=== PATIENT | female | born 2000 | race African-American/Black ===

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

== ENCOUNTER 2020-07-16 10:48 | Emergency (ER) | payer OTHER ==
[~2020-07-16] VITALS: Ht 165.1 cm; Wt 63.5 kg
[~2020-07-16 10:48] MED LIST: FLAGYL500 M1 PO
[2020-07-16 11:17] LABS: URINE BILIRUBIN NEGATIVE (Negative); URINE BLOOD NEGATIVE (Negative); URINE CLARITY CLEAR; URINE COLOR YELLOW; URINE GLUCOSE-RANDOM* NEGATIVE (Negative); URINE KETONES 1+ (Negative); URINE NITRITE-REFLEX NEGATIVE (Negative); URINE PROTEIN (DIPSTICK) 1+ (Negative)
[2020-07-16 11:20] LABS: URINE LEUKOCYTES-REFLEX 2+ (Negative)
[2020-07-16 11:53] LABS: CASTS None Seen /LPF (None Seen); SQUAMOUS >10 Many /LPF (0-3); URINE WBC-REFLEX 6-15 Few /HPF (0-5)
[2020-07-16 11:54] LABS: BACTERIA-REFLEX >30 Many /HPF (None Seen); CRYSTALS None Seen /LPF (None Seen); URINE RBC None Seen /HPF (0-2)
[2020-07-16 11:58] VITALS: BP 138/93
[2020-07-16] MEDS ORDERED: KEFLEX500 M1 PO (12:00)
== END 2020-07-16 12:05 | disposition home or self-care (01) ==
LOC: ER 10:48
PROVIDERS: Nurse Practitioner
DX: Z20.2 Contact with and (suspected) exposure to infections with a predominantly sexual mode of transmission (principal); N39.0 Urinary tract infection, site not specified

== ENCOUNTER 2020-09-18 18:52 | Emergency (ER) | payer OTHER ==
[~2020-09-18] VITALS: Ht 165.1 cm; Wt 47.6 kg
[~2020-09-18 18:52] MED LIST changes: +KEFLEX500 M1 PO
[2020-09-18 19:35] LABS: URINE BILIRUBIN 1+ (Negative); URINE BLOOD 1+ (Negative); URINE CLARITY SL CLOUDY; URINE COLOR YELLOW; URINE GLUCOSE-RANDOM* NEGATIVE (Negative); URINE KETONES 3+ (Negative); URINE NITRITE-REFLEX NEGATIVE (Negative); URINE PROTEIN (DIPSTICK) NEGATIVE (Negative); URINE SPECIFIC GRAVITY >= 1.030 (1.005-1.035)
[2020-09-18 19:37] LABS: URINE LEUKOCYTES-REFLEX 1+ (Negative)
[2020-09-18 20:09] LABS: BACTERIA-REFLEX 1-9 Few /HPF (None Seen); CASTS None Seen /LPF (None Seen); CRYSTALS None Seen /LPF (None Seen); MUCUS >6 Heavy strn/LPF (None Seen); SQUAMOUS 4-10 Moderate /LPF (0-3); URINE RBC 3-10 Few /HPF (0-2); URINE WBC-REFLEX 6-15 Few /HPF (0-5)
[2020-09-18] MEDS ORDERED: DOXYCYCLINE 10100 MG PO (20:34)
[2020-09-18] MEDS ORDERED: IBUPROFEN 600600 M1 PO (20:34)
[2020-09-18 20:44] VITALS: BP 138/64
== END 2020-09-18 20:45 | disposition home or self-care (01) ==
LOC: ER 18:52
PROVIDERS: Emergency Medicine
DX: N73.9 Female pelvic inflammatory disease, unspecified (principal)

== ENCOUNTER 2020-11-05 13:26 | Emergency (ER) | payer OTHER ==
[~2020-11-05] VITALS: Ht 165.1 cm; Wt 59.0 kg
[~2020-11-05 13:26] MED LIST changes: +DOXYCYCLINE 10100 MG PO; +IBUPROFEN 600600 M1 PO
[2020-11-05 13:42] VITALS: BP 127/70
[2020-11-05 14:08] LABS: URINE BILIRUBIN NEGATIVE (Negative); URINE BLOOD NEGATIVE (Negative); URINE CLARITY SL CLOUDY; URINE COLOR YELLOW; URINE GLUCOSE-RANDOM* NEGATIVE (Negative); URINE KETONES TRACE (Negative); URINE NITRITE-REFLEX NEGATIVE (Negative); URINE PROTEIN (DIPSTICK) TRACE (Negative)
[2020-11-05 14:16] LABS: URINE LEUKOCYTES-REFLEX 3+ (Negative)
[2020-11-05 14:25] LABS: CASTS None Seen /LPF (None Seen); CRYSTALS None Seen /LPF (None Seen); SQUAMOUS 4-10 Moderate /LPF (0-3)
[2020-11-05 14:26] LABS: BACTERIA-REFLEX 1-9 Few /HPF (None Seen); URINE RBC None Seen /HPF (0-2)
[2020-11-05] MEDS ORDERED: DIFLUCAN150 MG PO (16:10)
== END 2020-11-05 16:28 | disposition home or self-care (01) ==
LOC: ER 13:26
PROVIDERS: Emergency Medicine
DX: N76.0 Acute vaginitis (principal); B37.3 Candidiasis of vulva and vagina; J45.909 Unspecified asthma, uncomplicated

== ENCOUNTER 2021-06-11 14:20 | Emergency (ER) | payer OTHER ==
[~2021-06-11] VITALS: Ht 165.1 cm; Wt 59.0 kg
[~2021-06-11 14:20] MED LIST changes: +DIFLUCAN150 MG PO
[2021-06-11 14:48] LABS: URINE BILIRUBIN NEGATIVE (Negative); URINE BLOOD NEGATIVE (Negative); URINE CLARITY CLEAR; URINE COLOR YELLOW; URINE GLUCOSE-RANDOM* NEGATIVE (Negative); URINE KETONES TRACE (Negative); URINE LEUKOCYTES-REFLEX 1+ (Negative); URINE NITRITE-REFLEX NEGATIVE (Negative); URINE PROTEIN (DIPSTICK) NEGATIVE (Negative)
[2021-06-11 15:05] LABS: CASTS None Seen /LPF (None Seen); CRYSTALS None Seen /LPF (None Seen); MUCUS 4-6 Moderate strn/LPF (None Seen); SQUAMOUS 0-3 Few /LPF (0-3)
[2021-06-11 15:07] LABS: BACTERIA-REFLEX 1-9 Few /HPF (None Seen); URINE RBC None Seen /HPF (NONE SEEN); URINE WBC-REFLEX 0-5 Rare /HPF (0-5)
[2021-06-11] MEDS ORDERED: DOXYCYCLINE 10100 MG PO (16:35)
[2021-06-11 17:38] VITALS: BP 139/92
[2021-06-13] MEDS ORDERED: DOXYCYCLINE 10100 MG PO (10:45)
== END 2021-06-11 17:38 | disposition home or self-care (01) ==
LOC: ER 14:20
PROVIDERS: Nurse Practitioner
DX: Z20.2 Contact with and (suspected) exposure to infections with a predominantly sexual mode of transmission (principal); N89.8 Other specified noninflammatory disorders of vagina; J45.909 Unspecified asthma, uncomplicated; Z79.899 Other long term (current) drug therapy